=== PATIENT | female | born 1960 | race Caucasian/White ===

== ENCOUNTER 2017-01-18 02:33 | Emergency (ER) | payer OTHER ==
[~2017-01-18] VITALS: Ht 162.6 cm; Wt 56.0 kg
[~2017-01-18 02:33] MED LIST: PERC7.5T13 PO
[2017-01-18 02:40] VITALS: BP 145/93; PULSE 87; RESP 18; TEMP 98.1; O2SAT 98
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
[2017-01-18] MEDS ORDERED: TETANUS/DIPHTHERIA TOXOID ADULT 0.5 ML VIAL IM ONE (03:15)
--- NOTE | 2017-01-18 03:27 | RADRPT ---
EXAM DATE/TIME: 01/18/2017 03:12 [facility] COMPARISON: No previous studies available for comparison. INDICATIONS : Right knee pain after patient fell 24 hours ago MEDICAL HISTORY : None. SURGICAL HISTORY : None. ENCOUNTER: Initial ACUITY: 1 day PAIN SCORE: 10/10 LOCATION: Right entire knee FINDINGS: Four view examination of the right knee demonstrates no evidence of fracture or dislocation. Bony mi neralization is normal. The articular surfaces are intact. The suprapatellar soft tissues have a no rmal configuration. CONCLUSION: No fracture, subluxation or perceptible joint effusion. Saw Broderick MD on January 18, 2017 at 3:25 Board Certified Radiologist. This report was verified electronically.
[2017-01-18] MEDS ORDERED: KETOROLAC TROMETHAMINE 60 MG/2 ML (IM) VIAL IM ONE (03:45)
[2017-01-18] MEDS ORDERED: ORPHENADRINE INJ 60 MG/2 ML AMP IM ONE (03:45)
[2017-01-18] MEDS ORDERED: ALPRAZolam 1 MG TAB PO ONE (04:00)
[2017-01-18] MEDS ORDERED: ALPRAZolam 0.5 MG TAB PO ONE (04:00)
[2017-01-18] MEDS ORDERED: PERC5TAB12 PO (04:34)
[2017-01-18] MEDS ORDERED: CYCL10TA PO (04:34)
[2017-01-18] MEDS ORDERED: IBUP-232 PO (04:34)
[2017-01-18 04:48] VITALS: BP 147/68
== END 2017-01-18 04:50 | disposition home or self-care (01) ==
LOC: PHED 02:33
DX: M54.16 Radiculopathy, lumbar region (principal); S80.211A Abrasion, right knee, initial encounter; S60.512A Abrasion of left hand, initial encounter; S60.511A Abrasion of right hand, initial encounter; W19.XXXA Unspecified fall, initial encounter; Z23 Encounter for immunization
CPT/HCPCS: 73564; 90471; 90714; 96372; 99284; J1885; J2360